=== PATIENT | male | born 1945 | race Two or more races ===

== ENCOUNTER 2017-09-16 05:26 | Inpatient (IN) | payer MEDICARE, MEDICAID ==
[~2017-09-16] VITALS: Ht 180 cm; Wt 113.4 kg
[2017-09-16] VITALS (15 sets, daily range): BP systolic 117–164; BP diastolic 56–82
[2017-09-16] MEDS ORDERED: Vancomycin 500 MG in D5W 110 ML IVPB SCH (05:45)
[2017-09-16] MEDS ORDERED: Vancomycin 500mg/D5W 110ml IVPB ONE ×4 (06:00)
[2017-09-16] MEDS ORDERED: ceFAZolin sod 1 GM in NS 55 ML IVPB ONE (06:00)
[2017-09-16] MEDS ORDERED: OYSCO 500+D TA1 EAC1 PO (06:13)
[2017-09-16] MEDS ORDERED: TAMSULOSIN HCL0.4 MG ORAL (06:13)
[2017-09-16] MEDS ORDERED: DEXILANT60 MG ORAL (06:13)
[2017-09-16] MEDS ORDERED: LOSARTAN-HCTZ1 EAC1 ORAL (06:13)
[2017-09-16] MEDS ORDERED: VENTOLIN HFA18 GM INH (06:13)
[2017-09-16] MEDS ORDERED: XARELTO20 MG ORAL (06:13)
[2017-09-16] MEDS ORDERED: AVODART0.5 MG ORAL (06:13)
[2017-09-16] MEDS ORDERED: EZETIMIBE10 MG PO (07:01)
[2017-09-16] MEDS ORDERED: ATORVASTATIN CA20 MG ORAL (07:01)
[2017-09-16] MEDS ORDERED: MECLIZINE HCL25 M1 ORAL (07:01)
[2017-09-16] MEDS ORDERED: HYTRIN5 MG PO (07:01)
[2017-09-16] MEDS ORDERED: VASCEPA1 GM PO (07:01)
[2017-09-16] MEDS ORDERED: Midazolam 2mg/2ml Inj ONE (08:00)
[2017-09-16] MEDS ORDERED: ePHEDrine 50mg/ml Inj ONE (08:00)
[2017-09-16] MEDS ORDERED: fentaNYL 100 mcg/2 mL IV ONE (08:00)
[2017-09-16] MEDS ORDERED: Lidocaine 1% MPF 10mg/ml 5ml ONE (08:00)
[2017-09-16] MEDS ORDERED: NS Irrig 2000ml IRRIG ONE ×2 (08:00→08:35)
[2017-09-16] MEDS ORDERED: NS Irrig 4000ml IRRIG ONE ×2 (08:00→08:34)
[2017-09-16] MEDS ORDERED: NS Irrig 1000ml ONE (08:00)
[2017-09-16] MEDS ORDERED: Acetaminophen (Non formulary) 100 ML IV ONE (08:00)
[2017-09-16] MEDS ORDERED: LR 1000ml ONE (08:00)
[2017-09-16] MEDS ORDERED: Propofol 200mg/20ml IV ONE (08:00)
[2017-09-16] MEDS ORDERED: Metoclopramide 10mg/2ml Inj ONE (08:00)
--- NOTE | 2017-09-16 08:04 | Pre-Procedure Note/Attestation ---
Pre-Procedure Note/Attestation Complete Prior to Procedure Planned Procedure: not applicable Procedure Narrative: TURP Indications for Procedure Pre-Operative Diagnosis: BPH Attestation I attest that I discussed the nature of the procedure; its benefits; risks and complications; and alternatives (and the risks and benefits of such alternatives ), prior to the procedure, with the patient (or the patient's legal telephone service representative). I attest that, if there was a reasonable possibility of needing a blood transfusion, the patient (or the patient's legal telephone service representative) was given the [facility] standardized written summary, pursuant to the [place] Blood Safety Act ([place] Health and Safety Code # 1645, as amended). I attest that I re-evaluated the patient just prior to the surgery and that there has been no change in the patient's H&P, except as documented below: Kory May MD Sep 16, 2017 08:04
--- NOTE | 2017-09-16 08:55 | Anethesia Preoperative Eval ---
Anesthesia Pre-op PMH/ROS General Date of Evaluation: Sep 16, 2017 Time of Evaluation: 07:15 Anesthesiologist: Jj ASA Score: ASA 3 Mallampati Score Class I : Soft palate, uvula, fauces, pillars visible Class II: Soft palate, uvula, fauces visible Class III: Soft palate, base of uvula visible Class IV: Only hard plate visible Mallampati Classification: Class III Surgeon: Oswald Diagnosis: Prostate Hyperplasia Surgical Procedure: TURP Anesthesia History: none Family History: no anesthesia problems Allergies: Coded Allergies: No Known Allergies (Unverified , 09/15/17) Medications: see eMAR Past Medical History Cardiovascular: Reports: HTN, CAD, NH, valve dz, other - pacemaker Pulmonary: Denies: asthma, COPD, FRANCK, other Gastrointestinal/Genitourinary: Denies: GERD, CRI, ESRD, other Neurologic/Psychiatric: Denies: dementia, CVA, depression/anxiety, TIA, other Endocrine: Denies: DM, hypothyroidism, steroids, other HEENT: Reports: other - retinal detachment right eye? Hematology/Immune: Denies: anemia, DVT, bleeding disorder, other Musculoskeletal/Integumentary: Denies: OA, RA, DJD, DDD, edema, other Other: obesity PSxH Narrative: pacemaker Anesthesia Pre-op Phys. Exam Physician Exam Last Vital Signs Date Time Temp Pulse Resp B/P (MAP) Pulse Ox O2 Delivery O2 Flow Rate FiO2 09/16/17 06:03 97.0 74 18 126/56 95 Room Air Constitutional: NAD Neurologic: CN 2-12 intact Cardiovascular: RRR Respiratory: CTA Gastrointestinal: S/NT/ND Airway Exam Mallampati Classification 3 Mallampati Score: Class III MO: full Neck: thick TMD: 2fb ROM: full Teeth: missing Dentures: no upper, no lower Anesthesia Pre-op A/P Labs wnl Studies Pre-op Studies: EKG - v paced Risk Assessment & Plan Assessment: Denies CP/SOB, Stopped Xarelto 48 hours prior Plan: General Status Change Before Surgery: No Pre-Antibiotics Drug: Vanco Given Within 1 Hr of Incision: Yes Time Given: 07:00 UZAIR PACHECO CRNA Sep 16, 2017 08:55
[2017-09-16] MEDS ORDERED: Vancomycin 500 MG in D5W 110 ML IVPB ONE (09:15)
--- NOTE | 2017-09-16 09:28 | Brief Operative Note ---
Immediate Post Operative Note Operative Note Pre-op Diagnosis: BPH Procedure: TURP Post-op Diagnosis: same Post-op Diagnosis: same as pre-op Surgeon: Pedro Luis May Anesthesia: general Specimen: yes Complications: none Condition: stable Fluids: 500 Estimated Blood Loss: minimal Implant(s) used?: No Kory May MD Sep 16, 2017 09:28
[2017-09-16] MEDS ORDERED: Hydromorphone 0.5mg/0.5ml inj IVP PRN ×2 (09:45→15:01)
[2017-09-16] MEDS ORDERED: DiphenhydrAMINE 50mg/ml Inj IVP PRN (09:45)
--- NOTE | 2017-09-16 09:47 | Immediate Post-Op Evaluation ---
Immediate Post-Op Evalulation Immediate Post-Op Evalulation Procedure: TURP Date of Evaluation: Sep 16, 2017 Time of Evaluation: 09:46 IV Fluids: 600 Blood Products: 0 Blood Pressure Systolic: 146 Blood Pressure Diastolic: 73 Pulse Rate: 95 Respiratory Rate: 14 O2 Sat by Pulse Oximetry: 100 Temperature (Fahrenheit): 97.5 Nausea: No Vomiting: No Complications none Patient Status: awake, reacts, patent Hydration Status: adequate Drug: vanc Given Within 1 Hr of Incision: Yes Time Given: 08:00 UZAIR PACHECO CRNA Sep 16, 2017 09:47
[2017-09-16] MEDS: fentaNYL 100 mcg/2 mL IV PRN ×2 (09:57→10:31)
[2017-09-16 11:24] LABS: BASOPHILS % (AUTO) 0.9 % (0.0-2.0); EOSINOPHILS % (AUTO) 2.2 % (0.0-3.0); HEMATOCRIT 42.6 % (42.0-52.0); HEMOGLOBIN 13.8 G/DL (14.2-18.0); LYMPHOCYTES % (AUTO) 17.8 % (20.0-45.0); MEAN CORPUSCULAR VOLUME 86 FL (80-99); NEUTROPHILS % (AUTO) 71.1 % (45.0-75.0); PLATELET COUNT 183 K/UL (150-450); RED BLOOD COUNT 4.93 M/UL (4.70-6.10); RED CELL DISTRIBUTION WIDTH 13.2 % (11.6-14.8); WHITE BLOOD COUNT 7.5 K/UL (4.8-10.8)
--- NOTE | 2017-09-16 11:25 | 48 Hour Post Anesthesia Eval ---
Post Anesthesia Evaluation Procedure: TURP Date of Evaluation: Sep 16, 2017 Time of Evaluation: 11:24 Blood Pressure Systolic: 128 0: 68 Pulse Rate: 84 Respiratory Rate: 14 O2 Sat by Pulse Oximetry: 98 Airway: patent Nausea: No Vomiting: No Hydration Status: adequate Cardiopulmonary Status: stable Mental Status/LOC: patient returned to baseline Follow-up Care/Observations: na Post-Anesthesia Complications: none Follow-up care needed: N/A UZAIR PACHECO CRNA Sep 16, 2017 11:25
--- NOTE | 2017-09-16 11:38 | Diagnostic Imaging Report ---
Indication: Preop Technique: XRAY Chest 1v Comparison: None Findings: Heart is enlarged. Left-sided Acer noted. There is mild pulmonary vascular congestion. There is no definite focal airspace consolidation. No pleural effusion. No pneumothorax. No acute osseous abnormality.. Impression: Cardiomegaly and mild pulmonary vascular congestion. No focal airspace consolidation.
[2017-09-16 12:27] LABS: ANION GAP 3 mmol/L (5-15); BLOOD UREA NITROGEN 20 mg/dL (7-18); CALCIUM 8.4 MG/DL (8.5-10.1); CARBON DIOXIDE 30 MMOL/L (21-32); CHLORIDE 110 MMOL/L (98-107); CREATININE 1.5 MG/DL (0.55-1.30); POTASSIUM 4.7 MMOL/L (3.5-5.1); SODIUM 143 MMOL/L (136-145)
[2017-09-16] MEDS: D5 1/2NS w/KCl 20mEq 1,000 ML IV SCH ×2 (13:30→23:39)
[2017-09-16] MEDS ORDERED: Vancomycin 1.5 GM/D5W 250ML IVPB ONE (15:00)
[2017-09-16] MEDS ORDERED: Norco 5mg/325mg tab ORAL PRN (15:01)
--- NOTE | 2017-09-16 16:01 | History and Physical ---
History of Present Illness General Date patient seen: Sep 16, 2017 Present Illness HPI 71 year old with hx of BPH, HTN, hypercholesterolemia, underwent for TURP. Post operatively, he is admitted for postoperative care. Currently he is awake and feels comfortable Allergies: Coded Allergies: No Known Allergies (Unverified , 09/15/17) Medication History Scheduled Albuterol Sulfate (Ventolin Hfa), 2 PUFFS INH EVERY 4 HOURS, (Reported) Atorvastatin Calcium* (Atorvastatin Calcium*), 20 MG ORAL BEDTIME, (Reported) Calcium Carbonate/Vitamin D3 ([place] 500+D Tablet), 1 EACH PO BID, (Reported) Dexlansoprazole (Dexilant), 60 MG ORAL DAILY, (Reported) Dutasteride (Avodart), 0.5 MG ORAL DAILY, (Reported) Ezetimibe (Ezetimibe), 10 MG PO DAILY, (Reported) Icosapent Ethyl (Vascepa), 1 GM PO BID, (Reported) Losartan/Hydrochlorothiazide (Losartan-Hctz 100-25 Mg Tab), 1 TAB ORAL DAILY, ( Reported) Meclizine Hcl (Meclizine Hcl), 25 MG ORAL BID, (Reported) Rivaroxaban (Xarelto), 20 MG ORAL DAILY, (Reported) Tamsulosin Hcl (Tamsulosin Hcl*), 0.4 MG ORAL BEDTIME, (Reported) Terazosin HCl (Terazosin HCl), 5 MG PO QHS, (Reported) Patient History Healthcare decision maker N Resuscitation status Full Code Advanced Directive on File Past Medical/Surgical History Past Medical/Surgical History: (1) History of hypertension (2) Benign prostate hyperplasia Review of Systems All Other Systems: negative except mentioned in HPI Physical Exam General Appearance: WD/WN, no apparent distress Lines, tubes and drains: peripheral HEENT: normocephalic, atraumatic Neck: non-tender, normal alignment Respiratory/Chest: chest wall non-tender, lungs clear Breasts: no masses Cardiovascular/Chest: normal peripheral pulses Abdomen: normal bowel sounds, non tender Genitourinary/Rectal: normal genital exam Extremities: normal range of motion Skin Exam: normal pigmentation Neurologic: riding teacher II-XII grossly normal Last 24 Hour Vital Signs Date Time Temp Pulse Resp B/P (MAP) Pulse Ox O2 Delivery O2 Flow Rate FiO2 09/16/17 11:35 97.5 77 20 124/69 97 Nasal Cannula 3.0 09/16/17 11:25 84 14 98 09/16/17 11:11 98.0 84 20 128/69 97 Nasal Cannula 3.0 09/16/17 11:00 86 20 117/70 97 Nasal Cannula 3.0 09/16/17 10:45 83 20 117/70 97 Nasal Cannula 3.0 09/16/17 10:45 83 20 117/70 97 Nasal Cannula 3.0 09/16/17 10:31 86 20 121/73 97 Nasal Cannula 3.0 09/16/17 10:23 91 20 128/70 97 Nasal Cannula 3.0 09/16/17 10:12 92 20 119/76 97 Nasal Cannula 3.0 09/16/17 09:57 90 20 148/74 97 Nasal Cannula 3.0 09/16/17 09:47 95 14 100 09/16/17 09:45 94 20 146/71 97 Simple Mask 8.0 09/16/17 09:30 101 20 146/73 98 Simple Mask 8.0 09/16/17 09:25 110 20 164/61 99 Simple Mask 8.0 09/16/17 09:20 97.2 110 20 161/82 99 Simple Mask 8.0 09/16/17 06:03 97.0 74 18 126/56 95 Room Air Intake and Output 09/15/17 09/16/17 19:00 07:00 # Voids 1 Laboratory Tests Test 09/16/17 11:05 White Blood Count 7.5 K/UL (4.8-10.8) Red Blood Count 4.93 M/UL (4.70-6.10) Hemoglobin 13.8 G/DL (14.2-18.0) L Hematocrit 42.6 % (42.0-52.0) Mean Corpuscular Volume 86 FL (80-99) Mean Corpuscular Hemoglobin 28.0 PG (27.0-31.0) Mean Corpuscular Hemoglobin Concent 32.4 G/DL (32.0-36.0) Red Cell Distribution Width 13.2 % (11.6-14.8) Platelet Count 183 K/UL (150-450) Mean Platelet Volume 5.9 FL (6.5-10.1) L Neutrophils (%) (Auto) 71.1 % (45.0-75.0) Lymphocytes (%) (Auto) 17.8 % (20.0-45.0) L Monocytes (%) (Auto) 8.0 % (1.0-10.0) Eosinophils (%) (Auto) 2.2 % (0.0-3.0) Basophils (%) (Auto) 0.9 % (0.0-2.0) Sodium Level 143 MMOL/L (136-145) Potassium Level 4.7 MMOL/L (3.5-5.1) Chloride Level 110 MMOL/L (98-107) H Carbon Dioxide Level 30 MMOL/L (21-32) Anion Gap 3 mmol/L (5-15) L Blood Urea Nitrogen 20 mg/dL (7-18) H Creatinine 1.5 MG/DL (0.55-1.30) H Estimat Glomerular Filtration Rate 46.4 mL/min (>60) Glucose Level 105 MG/DL (74-106) Calcium Level 8.4 MG/DL (8.5-10.1) L Height (Feet): 5 Height (Inches): 10.87 Weight (Pounds): 250 Medications Current Medications Medications (Trade) Dose Ordered Sig/Radha Route PRN Reason Start Time Stop Time Status Last Admin Dose Admin Acetaminophen (Tylenol) 650 mg Q4H PRN ORAL FEVER 09/16/17 15:01 10/16/17 15:00 Acetaminophen (Tylenol) 650 mg Q6H PRN ORAL Mild Pain (Pain Scale 1-3) 09/16/17 15:01 10/16/17 15:00 Acetaminophen/ Hydrocodone Bitart ([place] 5/325) 1 tab Q4H PRN ORAL Moderate Pain (Pain Scale 4-6) 09/16/17 15:01 09/23/17 15:00 Dextrose/ Electrolytes 1,000 ml @ 100 mls/hr Q10H IV 09/16/17 12:30 10/16/17 12:29 09/16/17 13:30 Docusate Sodium (Colace) 100 mg TWICE A DAY ORAL 09/16/17 18:00 10/16/17 17:59 Hydromorphone HCl (Dilaudid) 1 mg Q3H PRN IVP pain score 4-6 09/16/17 15:01 09/23/17 15:00 Ondansetron HCl (Zofran) 4 mg Q6H PRN IVP Nausea & Vomiting 09/16/17 15:01 10/16/17 15:00 Temazepam (Restoril) 7.5 mg DAILYPRN PRN ORAL Insomnia 09/16/17 15:01 09/23/17 15:00 Vancomycin HCl/ Dextrose 250 ml @ 125 mls/hr ONCE ONCE IVPB 09/16/17 15:00 09/16/17 16:59 09/16/17 15:47 Assessment/Plan Problem List: (1) S/P TURP ICD Codes: Z90.79 - Acquired absence of other genital organ(s) SNOMED: 23545328, 789959788 (2) History of hypertension ICD Codes: Z86.79 - Personal history of other diseases of the circulatory system SNOMED: 413165501 (3) Benign prostate hyperplasia ICD Codes: N40.0 - Benign prostatic hyperplasia without lower urinary tract symptoms SNOMED: 808972913 Assessment/Plan symptomatic treatment monitor BP analgesics keep luna dc planning as per JORGE RODRIGUEZ Sep 16, 2017 16:01
[2017-09-16] MEDS: Docusate 100mg cap ORAL SCH (18:14)
[2017-09-16] MEDS: Tamsulosin 0.4mg cap ORAL SCH (21:00)
[2017-09-16] MEDS: Atorvastatin 20mg tab ORAL SCH (21:00)
[2017-09-17] VITALS (7 sets, daily range): BP systolic 114–169; BP diastolic 63–79
[2017-09-17 07:42] LABS: BASOPHILS % (AUTO) 0.8 % (0.0-2.0); EOSINOPHILS % (AUTO) 1.8 % (0.0-3.0); HEMATOCRIT 40.4 % (42.0-52.0); HEMOGLOBIN 13.8 G/DL (14.2-18.0); LYMPHOCYTES % (AUTO) 12.1 % (20.0-45.0); MEAN CORPUSCULAR VOLUME 86 FL (80-99); MONOCYTES % (AUTO) 7.2 % (1.0-10.0); NEUTROPHILS % (AUTO) 78.1 % (45.0-75.0); PLATELET COUNT 176 K/UL (150-450); RED BLOOD COUNT 4.73 M/UL (4.70-6.10); RED CELL DISTRIBUTION WIDTH 12.6 % (11.6-14.8); WHITE BLOOD COUNT 10.6 K/UL (4.8-10.8)
[2017-09-17 08:22] LABS: ANION GAP 6 mmol/L (5-15); BLOOD UREA NITROGEN 13 mg/dL (7-18); CALCIUM 8.2 MG/DL (8.5-10.1); CARBON DIOXIDE 26 MMOL/L (21-32); CHLORIDE 106 MMOL/L (98-107); CREATININE 1.1 MG/DL (0.55-1.30); SODIUM 138 MMOL/L (136-145)
[2017-09-17] MEDS: Docusate 100mg cap ORAL SCH ×2 (09:01→17:51)
[2017-09-17] MEDS: Losartan 50mg tab ORAL SCH (09:01)
[2017-09-17] MEDS: D5 1/2NS w/KCl 20mEq 1,000 ML IV SCH ×2 (09:04→18:54)
--- NOTE | 2017-09-17 10:42 | 48 Hour Post Anesthesia Eval ---
Post Anesthesia Evaluation Procedure: TURP Date of Evaluation: Sep 17, 2017 Time of Evaluation: 10:41 Blood Pressure Systolic: 162 0: 74 Pulse Rate: 68 Respiratory Rate: 22 Temperature (Fahrenheit): 97.6 O2 Sat by Pulse Oximetry: 98 Airway: patent Nausea: No Vomiting: No Pain Intensity: 2 Hydration Status: adequate Cardiopulmonary Status: stable Mental Status/LOC: patient returned to baseline Follow-up Care/Observations: n/a Post-Anesthesia Complications: none Follow-up care needed: N/A DAYLIN COLON M.D. Sep 17, 2017 10:42
--- NOTE | 2017-09-17 18:33 | Pulmonology Progress Note ---
Assessment/Plan Problems: (1) S/P TURP (2) History of hypertension (3) Benign prostate hyperplasia Assessment/Plan no new complains luna still in check electrolytes pt/ot dc planning in am Subjective ROS Limited/Unobtainable: No Constitutional: Reports: no symptoms HEENT: Repors: no symptoms Respiratory: Reports: no symptoms Allergies: Coded Allergies: No Known Allergies (Unverified , 09/15/17) Objective Last 24 Hour Vital Signs Date Time Temp Pulse Resp B/P (MAP) Pulse Ox O2 Delivery O2 Flow Rate FiO2 09/17/17 16:00 Room Air 09/17/17 16:00 98.9 88 21 160/73 94 09/17/17 12:02 98.0 86 20 160/63 92 09/17/17 12:00 Room Air 09/17/17 10:42 68 22 98 09/17/17 09:01 169/71 09/17/17 08:00 98.7 88 21 169/71 93 09/17/17 08:00 Room Air 09/17/17 04:00 97.7 84 20 159/69 91 09/17/17 00:00 97.7 77 20 114/64 91 09/16/17 20:00 97.8 84 19 152/70 94 Intake and Output 09/16/17 09/17/17 19:00 07:00 Intake Total 1700 ml 95964 ml Output Total 200 ml 22497 ml Balance 1500 ml -950 ml Intake Oral 200 ml IV Total 1500 ml 1100 ml Other 09180 ml Output Urine Total 200 ml 48685 ml # Voids 1 # Bowel Movements 1 Objective General Appearance: WD/WN HEENT: normocephalic, atraumatic Respiratory/Chest: chest wall non-tender, lungs clear Cardiovascular: normal peripheral pulses, normal rate Abdomen: normal bowel sounds, no organomegaly, non distended Laboratory Tests 09/17/17 04:55: White Blood Count 10.6, Red Blood Count 4.73, Hemoglobin 13.8L, Hematocrit 40.4L , Mean Corpuscular Volume 86, Mean Corpuscular Hemoglobin 29.3, Mean Corpuscular Hemoglobin Concent 34.2, Red Cell Distribution Width 12.6, Platelet Count 176, Mean Platelet Volume 6.0L, Neutrophils (%) (Auto) 78.1H, Lymphocytes (%) (Auto) 12.1L, Monocytes (%) (Auto) 7.2, Eosinophils (%) (Auto) 1.8, Basophils (%) (Auto) 0.8, Sodium Level 138, Potassium Level 4.0, Chloride Level 106, Carbon Dioxide Level 26, Anion Gap 6, Blood Urea Nitrogen 13, Creatinine 1.1, Estimat Glomerular Filtration Rate > 60, Glucose Level 93, Calcium Level 8.2L Current Medications Medications (Trade) Dose Ordered Sig/Radha Route PRN Reason Start Time Stop Time Status Last Admin Dose Admin Acetaminophen (Tylenol) 650 mg Q4H PRN ORAL FEVER 09/16/17 15:01 10/16/17 15:00 Acetaminophen (Tylenol) 650 mg Q6H PRN ORAL Mild Pain (Pain Scale 1-3) 09/16/17 15:01 10/16/17 15:00 Acetaminophen/ Hydrocodone Bitart ([place] 5/325) 1 tab Q4H PRN ORAL Moderate Pain (Pain Scale 4-6) 09/16/17 15:01 09/23/17 15:00 Atorvastatin Calcium (Lipitor) 20 mg BEDTIME ORAL 09/16/17 21:00 10/16/17 20:59 Dextrose/ Electrolytes 1,000 ml @ 100 mls/hr Q10H IV 09/16/17 12:30 10/16/17 12:29 09/17/17 09:04 Docusate Sodium (Colace) 100 mg TWICE A DAY ORAL 09/16/17 18:00 10/16/17 17:59 09/17/17 09:01 Hydromorphone HCl (Dilaudid) 1 mg Q3H PRN IVP pain score 4-6 09/16/17 15:01 09/23/17 15:00 Losartan Potassium (Cozaar) 100 mg DAILY ORAL 09/17/17 09:00 10/17/17 08:59 09/17/17 09:01 Ondansetron HCl (Zofran) 4 mg Q6H PRN IVP Nausea & Vomiting 09/16/17 15:01 10/16/17 15:00 Tamsulosin HCl (Flomax) 0.4 mg BEDTIME ORAL 09/16/17 21:00 10/16/17 20:59 Temazepam (Restoril) 7.5 mg DAILYPRN PRN ORAL Insomnia 09/16/17 15:01 09/23/17 15:00 Terazosin HCl (Hytrin) 5 mg QHS ORAL 09/16/17 21:00 10/16/17 20:59 09/16/17 21:21 JORGE ALVARADO Sep 17, 2017 18:33
[2017-09-17] MEDS: Tamsulosin 0.4mg cap ORAL SCH ×2 (20:39→20:42)
[2017-09-17] MEDS: Atorvastatin 20mg tab ORAL SCH ×2 (20:39→20:42)
[2017-09-17] MEDS: Vancomycin 1250mg/D5W 250ml IVPB SCH (23:57)
[2017-09-18] MEDS: D5 1/2NS w/KCl 20mEq 1,000 ML IV SCH ×2 (03:37→13:43)
[2017-09-18 04:57] VITALS: BP 155/64
[2017-09-18] MEDS: Docusate 100mg cap ORAL SCH ×2 (08:41→18:46)
[2017-09-18] MEDS: Losartan 50mg tab ORAL SCH (08:41)
[2017-09-18 08:45] VITALS: BP 130/60
[2017-09-18] MEDS ORDERED: Levofloxacin 500mg tab ORAL SCH (11:00)
[2017-09-18] MEDS: Vancomycin 1250mg/D5W 250ml IVPB SCH (11:07)
[2017-09-18 11:49] VITALS: BP 135/70
[2017-09-18 16:26] VITALS: BP 149/68
--- NOTE | 2017-09-18 16:26 | Pulmonology Progress Note ---
Assessment/Plan Problems: (1) S/P TURP (2) History of hypertension (3) Benign prostate hyperplasia Assessment/Plan no new complains improing check electrolytes pt/ot dc planning for today with oral abx the case and treatment plan were discussed with patient and family members. Subjective ROS Limited/Unobtainable: No Constitutional: Reports: no symptoms HEENT: Repors: no symptoms Respiratory: Reports: no symptoms Allergies: Coded Allergies: No Known Allergies (Unverified , 09/15/17) Objective Last 24 Hour Vital Signs Date Time Temp Pulse Resp B/P (MAP) Pulse Ox O2 Delivery O2 Flow Rate FiO2 09/18/17 11:49 97.2 79 20 135/70 94 09/18/17 08:45 97.3 73 20 130/60 94 09/18/17 08:41 130/60 09/18/17 04:57 98.0 82 20 155/64 95 09/17/17 23:58 97.9 86 20 135/79 93 09/17/17 20:56 97.8 87 19 160/74 93 Intake and Output 09/17/17 09/18/17 19:00 07:00 Intake Total 3200 ml 700 ml Output Total 92212 ml 1925 ml Balance -7800 ml -1225 ml IV Total 900 ml 700 ml Other 2300 ml Output Urine Total 49621 ml 1925 ml Objective General Appearance: WD/WN HEENT: normocephalic, atraumatic Respiratory/Chest: chest wall non-tender, lungs clear Cardiovascular: normal peripheral pulses, normal rate Abdomen: normal bowel sounds, no organomegaly, non distended Microbiology Date/Time Source Procedure Growth Status 09/16/17 06:20 Nasal Nares MRSA Culture - Final NO METHICILLIN RESISTANT STAPH AUREUS... Complete Current Medications Medications (Trade) Dose Ordered Sig/Radha Route PRN Reason Start Time Stop Time Status Last Admin Dose Admin Acetaminophen (Tylenol) 650 mg Q4H PRN ORAL FEVER 09/16/17 15:01 10/16/17 15:00 Acetaminophen (Tylenol) 650 mg Q6H PRN ORAL Mild Pain (Pain Scale 1-3) 09/16/17 15:01 10/16/17 15:00 Acetaminophen/ Hydrocodone Bitart ([place] 5/325) 1 tab Q4H PRN ORAL Moderate Pain (Pain Scale 4-6) 09/16/17 15:01 1/17/18 15:00 Atorvastatin Calcium (Lipitor) 20 mg BEDTIME ORAL 09/16/17 21:00 10/16/17 20:59 Dextrose/ Electrolytes 1,000 ml @ 100 mls/hr Q10H IV 09/16/17 12:30 10/16/17 12:29 09/18/17 03:37 Docusate Sodium (Colace) 100 mg TWICE A DAY ORAL 09/16/17 18:00 10/16/17 17:59 09/18/17 08:41 Hydromorphone HCl (Dilaudid) 1 mg Q3H PRN IVP pain score 4-6 09/16/17 15:01 09/23/17 15:00 Levofloxacin (Levaquin) 500 mg DAILY ORAL 09/18/17 11:00 09/25/17 10:59 09/18/17 11:06 Losartan Potassium (Cozaar) 100 mg DAILY ORAL 09/17/17 09:00 10/17/17 08:59 09/18/17 08:41 Ondansetron HCl (Zofran) 4 mg Q6H PRN IVP Nausea & Vomiting 09/16/17 15:01 10/16/17 15:00 Tamsulosin HCl (Flomax) 0.4 mg BEDTIME ORAL 09/16/17 21:00 10/16/17 20:59 Temazepam (Restoril) 7.5 mg DAILYPRN PRN ORAL Insomnia 09/16/17 15:01 09/23/17 15:00 Terazosin HCl (Hytrin) 5 mg QHS ORAL 09/16/17 21:00 10/16/17 20:59 09/17/17 20:39 Vancomycin HCl (Vanco rx to dose) 1 ea DAILY PRN MISC Per rx protocol 09/17/17 19:30 10/17/17 19:29 Vancomycin HCl/ Dextrose 250 ml @ 166.667 mls/hr Q12HR@1100,2300 IVPB 09/17/17 23:00 09/22/17 22:59 09/18/17 11:07 JORGE ALVARADO Sep 18, 2017 16:26
[2017-09-18] MEDS ORDERED: Tubing IV Secondary IV ONE ×2 (19:19)
[2017-09-18] MEDS ORDERED: NS Irrig 4000ml IRRIG ONE ×2 (19:19)
[2017-09-21] MEDS ORDERED: LEVAQUIN500 MG ORAL (08:55)
[2017-09-21] MEDS ORDERED: COLACE100 MG ORAL (08:55)
--- NOTE | 2017-09-21 09:01 | Discharge Summary ---
Discharge Summary Hospital Course Date of Admission Sep 16, 2017 at 05:26 Date of Discharge Sep 18, 2017 at 19:20 Admitting Diagnosis BPH Reason for Hospitalization: elective surgery HPI Gail Salazar is a 71 year old male who was admitted on Sep 16, 2017 at 05:26 for BPH for elective surgery Consultations dr Au -IM Procedures s/p TURP 09/16/[address] May [facility] Course s/p surgery initially IVF empiric abx Marks with CBI pain management bowel regimen OOB as tolerated with PT/OT BP management with current regimen statin continued Flomax and Hytrin continued CBI and F/c dc 09/18 as per surgeon able to void w/out difficulties tolerated diet ambulated pain controlled creat down to normal- 1.1 ( form initial postop-1.5) stable for dc home f/up as outpatient with surgeon as instructed Discharge Medications New Medications: Docusate Sodium* (Colace*) 100 Mg Capsule 100 MG ORAL TWICE A DAY, #30 CAP Levofloxacin* (Levaquin*) 500 Mg Tablet 500 MG ORAL DAILY, #7 TAB Continued Medications: Albuterol Sulfate (Ventolin Hfa) 18 Gm Hfa.aer.ad 2 PUFFS INH EVERY 4 HOURS, #18 GM 0 Refills Atorvastatin Calcium* (Atorvastatin Calcium*) 20 Mg Tablet 20 MG ORAL BEDTIME, TAB Calcium Carbonate/Vitamin D3 ([place]co 500+D Tablet) 1 Each Tablet 1 EACH PO BID, TAB Dexlansoprazole (Dexilant) 60 Mg Cap.bp 60 MG ORAL DAILY, CAP Dutasteride (Avodart) 0.5 Mg Capsule 0.5 MG ORAL DAILY, CAP Ezetimibe (Ezetimibe) 10 Mg Tablet 10 MG PO DAILY, TAB Icosapent Ethyl (Vascepa) 1 Gm Capsule 1 GM PO BID, CAP Losartan/Hydrochlorothiazide (Losartan-Hctz 100-25 Mg Tab) 1 Each Tablet 1 TAB ORAL DAILY, TAB Meclizine Hcl (Meclizine Hcl) 25 Mg Tab.chew 25 MG ORAL BID, TAB Rivaroxaban (Xarelto) 20 Mg Tablet 20 MG ORAL DAILY for 30 Days, MG 0 Refills Tamsulosin Hcl (Tamsulosin Hcl*) 0.4 Mg Cap.er.24h 0.4 MG ORAL BEDTIME, CAP Terazosin HCl (Terazosin HCl) 5 Mg Capsule 5 MG PO QHS, #7 CAP 0 Refills Discharge Condition Upon Discharge: stable Discharge Disposition Patient was discharged to Home (01) Discharge Diagnoses: Discharge Instructions Discharge Instructions Special Instructions I have been assigned to complete a D/C Summary on this account. I was not involved in the patient management Lupe Salinas NP ([place]) Sep 21, 2017 09:01
--- NOTE | 2017-09-21 21:00 | Operative Note - Dictated ---
DATE OF OPERATION: 09/16/2017 PREOPERATIVE DIAGNOSIS: Enlarged prostate. POSTOPERATIVE DIAGNOSIS: Enlarged prostate. OPERATION: Transurethral resection of the prostate. SURGEON: Kory May M.D. ANESTHESIA: General. FINDINGS: Enlarged prostate. INDICATION FOR SURGERY: The patient had severe voiding symptoms despite medical therapy. Treatment options were explained to him in great length including all potential complications. He signed a consent. DESCRIPTION OF OPERATION: He was brought to the operating room, placed in lithotomy position, and prepped and draped in standard fashion. Under general anesthesia, resectoscope was introduced into the bladder. Prostate was resected using bipolar TURP and all the chips were evacuated. Hemostasis . A 24-[place] catheter was placed. CBI was started. The patient tolerated the procedure well. No evidence of complications. Kory May M.D. DR: TERESSA JOB#: [id number] CC:
== END 2017-09-18 19:20 | disposition home or self-care (01) | DRG 714 ==
LOC: SDSOVERFLO 05:26 → 3E 11:48
PROC: 0VT08ZZ Resection of Prostate, Via Natural or Artificial Opening Endoscopic (ICD-10-PCS; principal; 2017-09-16 07:30)
DX: N40.1 Benign prostatic hyperplasia with lower urinary tract symptoms (principal); I10 Essential (primary) hypertension; E78.00 Pure hypercholesterolemia, unspecified; Z79.01 Long term (current) use of anticoagulants
CPT/HCPCS: 36415; 71045; 80048; 85025; 87081; 94003; 94150; J2250; J2405; J2765